=== PATIENT | male | born 1970 ===

== ENCOUNTER → 2025-05-24 20:48 | Outpatient (ROUT) | payer MEDICARE, MEDICAID, SELFPAY ==
[2025-05-24 21:56] LABS: Triglycerides 66 mg/dL (35-150)
[2025-05-24 22:01] LABS: Prealbumin 27.1 mg/dL (17.6-36.0)
== END ==
LOC: LAB 20:49
PROVIDERS: Visit Provider Nurse Practitioner Family
DX: K90.829 Short bowel syndrome, unspecified (principal); K91.2 Postsurgical malabsorption, not elsewhere classified; E87.8 Other disorders of electrolyte and fluid balance, not elsewhere classified
CPT/HCPCS: 84134; 84478; 86140